=== PATIENT | male | born 1960 | race Caucasian/White ===

== ENCOUNTER 2022-11-21 15:59 | Emergency (ER) | payer MEDICARE, OTHER, SELFPAY ==
[2022-11-21] VITALS (7 sets, daily range): BP systolic 129–173; BP diastolic 69–98; PULSE 65–102; RESP 18–20; TEMP 36.6–36.9; O2SAT 96–98; BMI 24.4
--- NOTE | 2022-11-21 16:04 | ECG_ITS ---
[facility] Test Date: 2022-11-21 Pat Name: cari pastor Department: Room: - Gender: Male [employer] V[employer]: : [id number] Requested By: SADA SHARPE Order Number: [id number] Reading MD: EMELYN DUBOSE Measurements Intervals [place] Rate: 80 P: 156 VA: 164 QRS: 54 QRSD: 120 T: 131 QT: 388 QTc: 424 Interpretive Statements Baseline artifact, regular, narrow complex rhythm 2420 RSR (QR) in lead V1/V2, consistent with right ventricular conduction delay 9150 abnormal ECG No previous ECG available for comparison Electronically Signed On 11-23-2022 19:39:33 EDT by EMELYN DUBOSE
--- NOTE | 2022-11-21 16:20 | PC.NURSE ---
fatmata, guardian [phone], called and left message that patient was transported here. Report from Estelita, nurse at [facility], states patient has been violent with staff and has been threatening physical violence. nurse states that geodon was not available to give and that patient refused all medications today. Patient also stripped in the dining childs yesterday and masturbated and believes he owns all the [facility].
[2022-11-21 16:25] LABS: Basophils Percent Auto 0.5 % (0.2-2.0); Eosinophils Absolute Auto 0.3 10^3/uL (0.0-0.7); Eosinophils Percent Auto 4.6 % (0.9-7.0); Hematocrit 42.5 % (42.0-54.0); Hemoglobin 14.6 g/dL (14.0-18.0); Immature Granulocytes Abs Auto 0.01 10^3/uL (0.00-0.03); Immature Granulocytes Pct Auto 0.2 % (0.0-0.5); Lymphocytes Absolute Auto 1.3 10^3/uL (1.2-3.8); Lymphocytes Percent Auto 22.6 % (20.5-60.0); Mean Corpuscular HGB Conc 34.4 g/dL (29.9-35.2); Mean Corpuscular Hemoglobin 31.9 pg (25.9-34.0); Mean Corpuscular Volume 92.8 fL (80.0-94.0); Mean Platelet Volume 9.6 fL (9.5-13.5); Monocytes Absolute Auto 0.4 10^3/uL (0.3-0.8); Monocytes Percent Auto 7.1 % (1.7-12.0); Neutrophils Absolute Auto 3.8 10^3/uL (1.4-6.5); Platelet Count 220 10^3/uL (150-450); Red Blood Count 4.58 10^6/uL (4.70-6.10); Red Cell Distribution Width 12.1 % (11.0-15.0); White Blood Count 5.9 10^3/uL (4.0-11.0)
[2022-11-21 16:33] LABS: Salicylate <2.8 mg/dL (<=19.9)
[2022-11-21 16:41] LABS: Ammonia 21 umol/L (11-32)
[2022-11-21 16:45] LABS: Alanine Aminotransferase 29 U/L (16-63); Albumin Globulin Ratio 1.1; Albumin Level 3.9 g/dL (3.4-5.0); Alkaline Phosphatase 86 U/L (46-116); Anion Gap 10.7; Aspartate Amino Transferase 14 U/L (15-37); BUN Creatinine Ratio 15.4; Bilirubin Total 0.3 mg/dL (0.2-1.0); Calcium 9.6 mg/dL (8.5-10.1); Carbon Dioxide 26.2 mmol/L (21.0-32.0); Chloride 105 mmol/L (98-107); Estimated GFR (African America >60 (>=60); Estimated GFR (Non-African Ame 53 (>=60); Ethanol <3 mg/dL; Globulin 3.7 g/dL; Glucose 92 mg/dL (74-106); Potassium 3.9 mmol/L (3.5-5.1); Sodium 138 mmol/L (136-145); Thyroid Stimulating Hormone 1.536 uIU/mL (0.358-3.740); Total Protein 7.6 g/dL (6.4-8.2)
[2022-11-21 16:53] LABS: Glucometer 92 mg/dL (74-106)
[2022-11-21 16:58] LABS: Bilirubin Urine NEGATIVE (NEGATIVE); Blood Urine NEGATIVE (NEGATIVE); Clarity Urine CLEAR (CLEAR); Color Urine LT. YELLOW (YELLOW); Glucose Urine UA NEGATIVE (NEGATIVE); Ketones Urine NEGATIVE (NEGATIVE); Leukocyte Esterase Urine NEGATIVE (NEGATIVE); Nitrite Urine NEGATIVE (NEGATIVE); Protein Urine NEGATIVE (NEG/TRACE); Urobilinogen Urine 0.2 EU/dL (0.2-1.0)
[2022-11-21 17:00] LABS: Acetaminophen <2.0 ug/mL (10.0-30.0)
[2022-11-21 17:07] LABS: Amphetamine Screen Urine NEGATIVE (NEGATIVE); Benzodiazepines Screen Urine NEGATIVE (NEGATIVE); Cannabinoid Screen Urine NEGATIVE (NEGATIVE); Cocaine Screen Urine NEGATIVE (NEGATIVE); Methamphetamines Screen Urine NEGATIVE (NEGATIVE); Opiate Screen Urine NEGATIVE (NEGATIVE); Phencyclidine Screen Urine NEGATIVE (NEGATIVE)
[2022-11-21 17:08] LABS: Barbiturates Screen Urine NEGATIVE (NEGATIVE); Buprenorphine Screen Urine NEGATIVE (NEGATIVE); Methadone Screen Urine NEGATIVE (NEGATIVE); Oxycodone Screen Urine NEGATIVE (NEGATIVE); Tricyclic Antidepressant Urine POSITIVE (NEGATIVE)
--- NOTE | 2022-11-21 18:18 | ED_ITS ---
Documented by User: Flavia Vera 12/04/22 13:09 HPI - Altered Mental Status General Chief Complaint: Altered Mental Status Stated Complaint: combative/off meds Time Seen by Provider: 11/21/22 16:04 Source: caregiver Mode of arrival: ambulance Limitations: no limitations History of Present Illness HPI narrative: 62-year-old male sent here to the emergency room by apoorva from [facility]. Patient is recently been admitted to [facility] from [facility]. He has a history of schizophrenic disorder and bipolar disorder. He became aggressive with staff and was yelling at [facility] today when they were trying to get blood work from him. said they could not keep him at that facility and sent him here to the hospital. patient is at his baseline at this point. Patient is not aggressive here thus far. Related Data Home Medications Medication Instructions Recorded Confirmed amlodipine 5 mg tablet 5 mg PO DAILY 11/22/22 11/22/22 aspirin 81 mg capsule 81 mg PO DAILY 11/22/22 11/22/22 carbidopa 25 mg-levodopa 100 mg 1 tab PO BID 11/22/22 11/22/22 tablet carbidopa 25 mg-levodopa 100 mg 1.5 tab PO QID 11/22/22 11/22/22 tablet cholecalciferol (vitamin D3) 25 1,000 unit PO DAILY 11/22/22 11/22/22 mcg (1,000 unit) capsule cimetidine 300 mg tablet 300 mg PO Q12H 11/22/22 11/22/22 pimavanserin 34 mg capsule 34 mg PO DAILY 11/22/22 11/22/22 quetiapine 100 mg tablet 100 mg PO DAILY 11/22/22 11/22/22 quetiapine 400 mg tablet 400 mg PO BEDTIME 11/22/22 11/22/22 trazodone 100 mg tablet 100 mg PO BEDTIME 11/22/22 11/22/22 ziprasidone mesylate (Geodon) 20 mg IM .q12 PRN restlessness 11/22/22 11/22/22 Allergies Allergy/AdvReac Type Severity Reaction Status Date / Time No Known Drug Allergies Allergy Verified 11/21/22 16:00 Review of Systems ROS Narrative All Systems are negative except as noted/marked.All systems reviewed and otherwise negative [facility] Medical History (Updated 11/22/22 @ 04:56 by David Santiago) Exam Narrative Exam Narrative: General: The patient appears well and in no apparent distress. Patient is resting comfortably on cart. Skin: Warm, dry, no pallor noted. There is no rash noted. Head: Normocephalic, atraumatic Eye: Normal conjunctiva, no drainage, EOMI. PERRL Ears, Nose, Mouth, and Throat: oral mucosa is moist. Nares patent. Mouth without vesicles. Ear canals patent. Tm's without Erythema Cardiovascular: Regular Rate and Rhythm Respiratory: Patient is in no distress, no accessory muscle use, lungs are clear to auscultation, no wheezing, rales or rhonchi Back: non-tender, no CVA tenderness bilaterally to percussion. GI: Normal bowel sounds, no tenderness to palpation, no masses appreciated. No rebound, guarding, or rigidity noted. Musculoskeletal: Bilateral upper extremity Parkinson's tremor, chronic contracture of the hands bilaterally ,The patient has no evidence of calf tenderness, no pitting edema, symmetrical pulses noted bilaterally Neurological: Bilateral upper extremity tremors, chronic, normal speech, alert to self Psychiatric: Cooperative schizophrenic Constitutional Vital Signs - 24 hr 11/21/22 16:01 11/21/22 22:57 11/21/22 17:46 Temperature 98 F 98.4 F Pulse Rate 65 79 Pulse Rate [Monitor] 78 Respiratory Rate 20 20 18 Blood Pressure 129/69 H 140/98 H Blood Pressure [Right Arm] 173/94 H Pulse Oximetry 98 97 98 Oxygen Delivery Method Room Air Course Vital Signs Vital signs: Vital Signs Temperature 98 F 11/21/22 16:01 Pulse Rate 78 11/21/22 16:01 Respiratory Rate 20 11/21/22 16:01 Blood Pressure 173/94 H 11/21/22 16:01 Pulse Oximetry 98 11/21/22 16:01 Oxygen Delivery Method Room Air 11/21/22 16:01 Temperature 98.4 F 11/21/22 22:57 Pulse Rate 65 11/21/22 22:57 Respiratory Rate 20 11/21/22 22:57 Blood Pressure 141/85 H 11/22/22 10:53 Pulse Oximetry 97 11/21/22 22:57 Oxygen Delivery Method Room Air 11/21/22 16:01 MDM - Altered Mental Status MDM Narrative Medical decision making narrative: She has a known history of schizophrenia and bipolar. He has been's staying at a assisted since November 11. Over last 24-48 hours he had become aggressive with staff and then loomed ax stripped in the kitchen. Patient was sent here for evaluation and further placement at the assisted could not care for him. Patient has been calm and cooperative here in emergency room. Vital signs have been stable. He is eating and drinking well. Labwork was within normal limits patient is medically cleared. He has talked to [facility] and we're awaiting placement at this time. Medical Records Attestation: I reviewed the patient's medical records. Lab Data Attestation: I reviewed the patient's lab results. Labs: Lab Results 11/21/22 11/21/22 11/21/22 Range/Units 16:15 16:30 16:50 WBC 5.9 (4.0-11.0) 10^3/uL RBC 4.58 L (4.70-6.10) 10^6/uL Hgb 14.6 (14.0-18.0) g/dL Hct 42.5 (42.0-54.0) % MCV 92.8 (80.0-94.0) fL MCH 31.9 (25.9-34.0) pg MCHC 34.4 (29.9-35.2) g/dL RDW 12.1 (11.0-15.0) % Plt Count 220 (150-450) 10^3/uL MPV 9.6 (9.5-13.5) fL Neut % (Auto) 65.0 (43.0-75.0) % Lymph % (Auto) 22.6 (20.5-60.0) % [place] % (Auto) 7.1 (1.7-12.0) % Eos % (Auto) 4.6 (0.9-7.0) % Baso % (Auto) 0.5 (0.2-2.0) % Neut # (Auto) 3.8 (1.4-6.5) 10^3/uL Lymph # (Auto) 1.3 (1.2-3.8) 10^3/uL [place] # (Auto) 0.4 (0.3-0.8) 10^3/uL Eos # (Auto) 0.3 (0.0-0.7) 10^3/uL Baso # (Auto) 0.0 (0.0-0.1) 10^3/uL Abs Immat Gran (auto) 0.01 (0.00-0.03) 10^3/uL Imm/Tot Granulo (auto) 0.2 (0.0-0.5) % Sodium 138 (136-145) mmol/L Potassium 3.9 (3.5-5.1) mmol/L Chloride 105 (98-107) mmol/L Carbon Dioxide 26.2 (21.0-32.0) mmol/L Anion Gap 10.7 BUN 21.0 H (7.0-18.0) mg/dL Creatinine 1.36 H (0.70-1.30) mg/dL Est GFR ( Amer) >60 (>=60) Est GFR (Non-Af Amer) 53 L (>=60) BUN/Creatinine Ratio 15.4 Glucose 92 (74-106) mg/dL Calcium 9.6 (8.5-10.1) mg/dL Total Bilirubin 0.3 (0.2-1.0) mg/dL AST 14 L (15-37) U/L ALT 29 (16-63) U/L Alkaline Phosphatase 86 (46-116) U/L Ammonia 21 (11-32) umol/L Total Protein 7.6 (6.4-8.2) g/dL Albumin 3.9 (3.4-5.0) g/dL Globulin 3.7 g/dL Albumin/Globulin Ratio 1.1 TSH 1.536 (0.358-3.740) uIU/mL Urine Color Lt. yellow (YELLOW) Urine Clarity Clear (CLEAR) Urine pH 6.0 (5.0-9.0) Ur Specific [place] 1.010 (1.005-1.025) Urine Protein Negative (NEG/TRACE) mg/dL Urine Glucose (UA) Negative (NEGATIVE) mg/dL Urine Ketones Negative (NEGATIVE) mg/dL Urine Occult Blood Negative (NEGATIVE) Urine Nitrite Negative (NEGATIVE) Urine Bilirubin Negative (NEGATIVE) Urine Urobilinogen 0.2 (0.2-1.0) EU/dL Ur Leukocyte Esterase Negative (NEGATIVE) Salicylates <2.8 (<=19.9) mg/dL Urine Opiates Screen Negative (NEGATIVE) Ur Buprenorphine Scrn Negative (NEGATIVE) Ur Oxycodone Screen Negative (NEGATIVE) Urine Methadone Screen Negative (NEGATIVE) Ur Propoxyphene Screen Negative (NEGATIVE) Acetaminophen <2.0 L (10.0-30.0) ug/mL Ur Barbiturates Screen Negative (NEGATIVE) U Tricyclic Antidepress Positive A (NEGATIVE) Ur Phencyclidine Scrn Negative (NEGATIVE) Ur Amphetamines Screen Negative (NEGATIVE) U Methamphetamines Scrn Negative (NEGATIVE) U Benzodiazepines Scrn Negative (NEGATIVE) Urine Cocaine Screen Negative (NEGATIVE) U Cannabinoids Screen Negative (NEGATIVE) Ethanol Quant <3 mg/dL Adenovirus (PCR) (NOT DETECTE) C. pneumoniae DNA (PCR) (NOT DETECTE) Coronavirus Type OC43 (NOT DETECTE) Coronavirus Type HKU1 (NOT DETECTE) Coronavirus Type 229E (NOT DETECTE) Coronavirus Type NL63 (NOT DETECTE) Human Metapneumovir PCR (NOT DETECTE) M. pneumoniae (PCR) (NOT DETECTE) Parainfluenza PCR (NOT DETECTE) Parainfluenza 2 (PCR) (NOT DETECTE) Parainfluenza 3 (PCR) (NOT DETECTE) Parainfluenza 4 (PCR) (NOT DETECTE) RSV (RT-PCR) (NOT DETECTE) Entero/Rhino (PCR) (NOT DETECTE) SARS-CoV-2 (PCR) (NOT DETECTE) Bordetella pertussis (PCR) (NOT DETECTE) B parapertussis DNA PCR (NOT DETECTE) Influenza Type A (PCR) (NOT DETECTE) Influenza Type B (PCR) (NOT DETECTE) POC Glucose 92 (74-106) mg/dL 11/21/22 Range/Units 21:50 WBC (4.0-11.0) 10^3/uL RBC (4.70-6.10) 10^6/uL Hgb (14.0-18.0) g/dL Hct (42.0-54.0) % MCV (80.0-94.0) fL MCH (25.9-34.0) pg MCHC (29.9-35.2) g/dL RDW (11.0-15.0) % Plt Count (150-450) 10^3/uL MPV (9.5-13.5) fL Neut % (Auto) (43.0-75.0) % Lymph % (Auto) (20.5-60.0) % [place] % (Auto) (1.7-12.0) % Eos % (Auto) (0.9-7.0) % Baso % (Auto) (0.2-2.0) % Neut # (Auto) (1.4-6.5) 10^3/uL Lymph # (Auto) (1.2-3.8) 10^3/uL [place] # (Auto) (0.3-0.8) 10^3/uL Eos # (Auto) (0.0-0.7) 10^3/uL Baso # (Auto) (0.0-0.1) 10^3/uL Abs Immat Gran (auto) (0.00-0.03) 10^3/uL Imm/Tot Granulo (auto) (0.0-0.5) % Sodium (136-145) mmol/L Potassium (3.5-5.1) mmol/L Chloride (98-107) mmol/L Carbon Dioxide (21.0-32.0) mmol/L Anion Gap BUN (7.0-18.0) mg/dL Creatinine (0.70-1.30) mg/dL Est GFR ( Amer) (>=60) Est GFR (Non-Af Amer) (>=60) BUN/Creatinine Ratio Glucose (74-106) mg/dL Calcium (8.5-10.1) mg/dL Total Bilirubin (0.2-1.0) mg/dL AST (15-37) U/L ALT (16-63) U/L Alkaline Phosphatase (46-116) U/L Ammonia (11-32) umol/L Total Protein (6.4-8.2) g/dL Albumin (3.4-5.0) g/dL Globulin g/dL Albumin/Globulin Ratio TSH (0.358-3.740) uIU/mL Urine Color (YELLOW) Urine Clarity (CLEAR) Urine pH (5.0-9.0) Ur Specific [place] (1.005-1.025) Urine Protein (NEG/TRACE) mg/dL Urine Glucose (UA) (NEGATIVE) mg/dL Urine Ketones (NEGATIVE) mg/dL Urine Occult Blood (NEGATIVE) Urine Nitrite (NEGATIVE) Urine Bilirubin (NEGATIVE) Urine Urobilinogen (0.2-1.0) EU/dL Ur Leukocyte Esterase (NEGATIVE) Salicylates (<=19.9) mg/dL Urine Opiates Screen (NEGATIVE) Ur Buprenorphine Scrn (NEGATIVE) Ur Oxycodone Screen (NEGATIVE) Urine Methadone Screen (NEGATIVE) Ur Propoxyphene Screen (NEGATIVE) Acetaminophen (10.0-30.0) ug/mL Ur Barbiturates Screen (NEGATIVE) U Tricyclic Antidepress (NEGATIVE) Ur Phencyclidine Scrn (NEGATIVE) Ur Amphetamines Screen (NEGATIVE) U Methamphetamines Scrn (NEGATIVE) U Benzodiazepines Scrn (NEGATIVE) Urine Cocaine Screen (NEGATIVE) U Cannabinoids Screen (NEGATIVE) Ethanol Quant mg/dL Adenovirus (PCR) Not detected (NOT DETECTE) C. pneumoniae DNA (PCR) Not detected (NOT DETECTE) Coronavirus Type OC43 Not detected (NOT DETECTE) Coronavirus Type HKU1 Not detected (NOT DETECTE) Coronavirus Type 229E Not detected (NOT DETECTE) Coronavirus Type NL63 Not detected (NOT DETECTE) Human Metapneumovir PCR Not detected (NOT DETECTE) M. pneumoniae (PCR) Not detected (NOT DETECTE) Parainfluenza PCR Not detected (NOT DETECTE) Parainfluenza 2 (PCR) Not detected (NOT DETECTE) Parainfluenza 3 (PCR) Not detected (NOT DETECTE) Parainfluenza 4 (PCR) Not detected (NOT DETECTE) RSV (RT-PCR) Not detected (NOT DETECTE) Entero/Rhino (PCR) Not detected (NOT DETECTE) SARS-CoV-2 (PCR) Not detected (NOT DETECTE) Bordetella pertussis (PCR) Not detected (NOT DETECTE) B parapertussis DNA PCR Not detected (NOT DETECTE) Influenza Type A (PCR) Not detected (NOT DETECTE) Influenza Type B (PCR) Not detected (NOT DETECTE) POC Glucose (74-106) mg/dL Discharge Plan Discharge Chief Complaint: Altered Mental Status Clinical Impression: Schizo affective schizophrenia Patient Disposition: Xfer Psychiatric Hosp Time of Disposition Decision: 02:45 Condition: Good Mode of Transportation: Mental Health Car Discharge Date/Time: 11/22/22 12:45 Documented by User: Belem Suarez MD 11/22/22 04:52 HPI - Altered Mental Status General Chief Complaint: Altered Mental Status Stated Complaint: combative/off meds Time Seen by Provider: 11/21/22 16:04 Related Data Home Medications Medication Instructions Recorded Confirmed amlodipine 5 mg tablet 5 mg PO DAILY 11/22/22 11/22/22 aspirin 81 mg capsule 81 mg PO DAILY 11/22/22 11/22/22 carbidopa 25 mg-levodopa 100 mg 1 tab PO BID 11/22/22 11/22/22 tablet carbidopa 25 mg-levodopa 100 mg 1.5 tab PO QID 11/22/22 11/22/22 tablet cholecalciferol (vitamin D3) 25 1,000 unit PO DAILY 11/22/22 11/22/22 mcg (1,000 unit) capsule cimetidine 300 mg tablet 300 mg PO Q12H 11/22/22 11/22/22 pimavanserin 34 mg capsule 34 mg PO DAILY 11/22/22 11/22/22 quetiapine 100 mg tablet 100 mg PO DAILY 11/22/22 11/22/22 quetiapine 400 mg tablet 400 mg PO BEDTIME 11/22/22 11/22/22 trazodone 100 mg tablet 100 mg PO BEDTIME 11/22/22 11/22/22 ziprasidone mesylate (Geodon) 20 mg IM .q12 PRN restlessness 11/22/22 11/22/22 Allergies Allergy/AdvReac Type Severity Reaction Status Date / Time No Known Drug Allergies Allergy Verified 11/21/22 16:00 [facility] Medical History (Updated 11/22/22 @ 04:56 by David Santiago) Exam Constitutional Vital Signs - 24 hr 11/21/22 16:01 11/21/22 22:57 11/21/22 17:46 Temperature 98 F 98.4 F Pulse Rate 65 79 Pulse Rate [Monitor] 78 Respiratory Rate 20 20 18 Blood Pressure 129/69 H 140/98 H Blood Pressure [Right Arm] 173/94 H Pulse Oximetry 98 97 98 Oxygen Delivery Method Room Air Course Vital Signs Vital signs: Vital Signs Temperature 98 F 11/21/22 16:01 Pulse Rate 78 11/21/22 16:01 Respiratory Rate 20 11/21/22 16:01 Blood Pressure 173/94 H 11/21/22 16:01 Pulse Oximetry 98 11/21/22 16:01 Oxygen Delivery Method Room Air 11/21/22 16:01 Temperature 98.4 F 11/21/22 22:57 Pulse Rate 65 11/21/22 22:57 Respiratory Rate 20 11/21/22 22:57 Blood Pressure 141/85 H 11/22/22 10:53 Pulse Oximetry 97 11/21/22 22:57 Oxygen Delivery Method Room Air 11/21/22 16:01 MDM - Altered Mental Status MDM Narrative Medical decision making narrative: He has a known history of schizophrenia and bipolar. He has been's staying at a assisted since November 11. Over last 24-48 hours he had become aggressive with staff and stripped in the kitchen. Patient was sent here for evaluation and further placement at the assisted could not care for him. Patient has been calm and cooperative here in emergency room. Vital signs have been stable. He is eating and drinking well. Labwork was within normal limits patient is medically cleared. He has talked to [facility] and we're awaiting placement at this time. She was seen and evaluated with the physician reference assistant. Please for her H and P. This patient has a history of schizophrenia and bipolar disorder and has had a behavioral change recently. He was medically cleared in the emergency department and evaluated by [facility] with recommendation for psychiatric stabilization. He has been accepted for transfer to [facility] in [place] and will be transferred later today. He remains bizarre but calm and cooperative while in the ED Lab Data Labs: Lab Results 11/21/22 11/21/22 11/21/22 Range/Units 16:15 16:30 16:50 WBC 5.9 (4.0-11.0) 10^3/uL RBC 4.58 L (4.70-6.10) 10^6/uL Hgb 14.6 (14.0-18.0) g/dL Hct 42.5 (42.0-54.0) % MCV 92.8 (80.0-94.0) fL MCH 31.9 (25.9-34.0) pg MCHC 34.4 (29.9-35.2) g/dL RDW 12.1 (11.0-15.0) % Plt Count 220 (150-450) 10^3/uL MPV 9.6 (9.5-13.5) fL Neut % (Auto) 65.0 (43.0-75.0) % Lymph % (Auto) 22.6 (20.5-60.0) % [place] % (Auto) 7.1 (1.7-12.0) % Eos % (Auto) 4.6 (0.9-7.0) % Baso % (Auto) 0.5 (0.2-2.0) % Neut # (Auto) 3.8 (1.4-6.5) 10^3/uL Lymph # (Auto) 1.3 (1.2-3.8) 10^3/uL [place] # (Auto) 0.4 (0.3-0.8) 10^3/uL Eos # (Auto) 0.3 (0.0-0.7) 10^3/uL Baso # (Auto) 0.0 (0.0-0.1) 10^3/uL Abs Immat Gran (auto) 0.01 (0.00-0.03) 10^3/uL Imm/Tot Granulo (auto) 0.2 (0.0-0.5) % Sodium 138 (136-145) mmol/L Potassium 3.9 (3.5-5.1) mmol/L Chloride 105 (98-107) mmol/L Carbon Dioxide 26.2 (21.0-32.0) mmol/L Anion Gap 10.7 BUN 21.0 H (7.0-18.0) mg/dL Creatinine 1.36 H (0.70-1.30) mg/dL Est GFR ( Amer) >60 (>=60) Est GFR (Non-Af Amer) 53 L (>=60) BUN/Creatinine Ratio 15.4 Glucose 92 (74-106) mg/dL Calcium 9.6 (8.5-10.1) mg/dL Total Bilirubin 0.3 (0.2-1.0) mg/dL AST 14 L (15-37) U/L ALT 29 (16-63) U/L Alkaline Phosphatase 86 (46-116) U/L Ammonia 21 (11-32) umol/L Total Protein 7.6 (6.4-8.2) g/dL Albumin 3.9 (3.4-5.0) g/dL Globulin 3.7 g/dL Albumin/Globulin Ratio 1.1 TSH 1.536 (0.358-3.740) uIU/mL Urine Color Lt. yellow (YELLOW) Urine Clarity Clear (CLEAR) Urine pH 6.0 (5.0-9.0) Ur Specific [place] 1.010 (1.005-1.025) Urine Protein Negative (NEG/TRACE) mg/dL Urine Glucose (UA) Negative (NEGATIVE) mg/dL Urine Ketones Negative (NEGATIVE) mg/dL Urine Occult Blood Negative (NEGATIVE) Urine Nitrite Negative (NEGATIVE) Urine Bilirubin Negative (NEGATIVE) Urine Urobilinogen 0.2 (0.2-1.0) EU/dL Ur Leukocyte Esterase Negative (NEGATIVE) Salicylates <2.8 (<=19.9) mg/dL Urine Opiates Screen Negative (NEGATIVE) Ur Buprenorphine Scrn Negative (NEGATIVE) Ur Oxycodone Screen Negative (NEGATIVE) Urine Methadone Screen Negative (NEGATIVE) Ur Propoxyphene Screen Negative (NEGATIVE) Acetaminophen <2.0 L (10.0-30.0) ug/mL Ur Barbiturates Screen Negative (NEGATIVE) U Tricyclic Antidepress Positive A (NEGATIVE) Ur Phencyclidine Scrn Negative (NEGATIVE) Ur Amphetamines Screen Negative (NEGATIVE) U Methamphetamines Scrn Negative (NEGATIVE) U Benzodiazepines Scrn Negative (NEGATIVE) Urine Cocaine Screen Negative (NEGATIVE) U Cannabinoids Screen Negative (NEGATIVE) Ethanol Quant <3 mg/dL Adenovirus (PCR) (NOT DETECTE) C. pneumoniae DNA (PCR) (NOT DETECTE) Coronavirus Type OC43 (NOT DETECTE) Coronavirus Type HKU1 (NOT DETECTE) Coronavirus Type 229E (NOT DETECTE) Coronavirus Type NL63 (NOT DETECTE) Human Metapneumovir PCR (NOT DETECTE) M. pneumoniae (PCR) (NOT DETECTE) Parainfluenza PCR (NOT DETECTE) Parainfluenza 2 (PCR) (NOT DETECTE) Parainfluenza 3 (PCR) (NOT DETECTE) Parainfluenza 4 (PCR) (NOT DETECTE) RSV (RT-PCR) (NOT DETECTE) Entero/Rhino (PCR) (NOT DETECTE) SARS-CoV-2 (PCR) (NOT DETECTE) Bordetella pertussis (PCR) (NOT DETECTE) B parapertussis DNA PCR (NOT DETECTE) Influenza Type A (PCR) (NOT DETECTE) Influenza Type B (PCR) (NOT DETECTE) POC Glucose 92 (74-106) mg/dL 11/21/22 Range/Units 21:50 WBC (4.0-11.0) 10^3/uL RBC (4.70-6.10) 10^6/uL Hgb (14.0-18.0) g/dL Hct (42.0-54.0) % MCV (80.0-94.0) fL MCH (25.9-34.0) pg MCHC (29.9-35.2) g/dL RDW (11.0-15.0) % Plt Count (150-450) 10^3/uL MPV (9.5-13.5) fL Neut % (Auto) (43.0-75.0) % Lymph % (Auto) (20.5-60.0) % [place] % (Auto) (1.7-12.0) % Eos % (Auto) (0.9-7.0) % Baso % (Auto) (0.2-2.0) % Neut # (Auto) (1.4-6.5) 10^3/uL Lymph # (Auto) (1.2-3.8) 10^3/uL [place] # (Auto) (0.3-0.8) 10^3/uL Eos # (Auto) (0.0-0.7) 10^3/uL Baso # (Auto) (0.0-0.1) 10^3/uL Abs Immat Gran (auto) (0.00-0.03) 10^3/uL Imm/Tot Granulo (auto) (0.0-0.5) % Sodium (136-145) mmol/L Potassium (3.5-5.1) mmol/L Chloride (98-107) mmol/L Carbon Dioxide (21.0-32.0) mmol/L Anion Gap BUN (7.0-18.0) mg/dL Creatinine (0.70-1.30) mg/dL Est GFR ( Amer) (>=60) Est GFR (Non-Af Amer) (>=60) BUN/Creatinine Ratio Glucose (74-106) mg/dL Calcium (8.5-10.1) mg/dL Total Bilirubin (0.2-1.0) mg/dL AST (15-37) U/L ALT (16-63) U/L Alkaline Phosphatase (46-116) U/L Ammonia (11-32) umol/L Total Protein (6.4-8.2) g/dL Albumin (3.4-5.0) g/dL Globulin g/dL Albumin/Globulin Ratio TSH (0.358-3.740) uIU/mL Urine Color (YELLOW) Urine Clarity (CLEAR) Urine pH (5.0-9.0) Ur Specific [place] (1.005-1.025) Urine Protein (NEG/TRACE) mg/dL Urine Glucose (UA) (NEGATIVE) mg/dL Urine Ketones (NEGATIVE) mg/dL Urine Occult Blood (NEGATIVE) Urine Nitrite (NEGATIVE) Urine Bilirubin (NEGATIVE) Urine Urobilinogen (0.2-1.0) EU/dL Ur Leukocyte Esterase (NEGATIVE) Salicylates (<=19.9) mg/dL Urine Opiates Screen (NEGATIVE) Ur Buprenorphine Scrn (NEGATIVE) Ur Oxycodone Screen (NEGATIVE) Urine Methadone Screen (NEGATIVE) Ur Propoxyphene Screen (NEGATIVE) Acetaminophen (10.0-30.0) ug/mL Ur Barbiturates Screen (NEGATIVE) U Tricyclic Antidepress (NEGATIVE) Ur Phencyclidine Scrn (NEGATIVE) Ur Amphetamines Screen (NEGATIVE) U Methamphetamines Scrn (NEGATIVE) U Benzodiazepines Scrn (NEGATIVE) Urine Cocaine Screen (NEGATIVE) U Cannabinoids Screen (NEGATIVE) Ethanol Quant mg/dL Adenovirus (PCR) Not detected (NOT DETECTE) C. pneumoniae DNA (PCR) Not detected (NOT DETECTE) Coronavirus Type OC43 Not detected (NOT DETECTE) Coronavirus Type HKU1 Not detected (NOT DETECTE) Coronavirus Type 229E Not detected (NOT DETECTE) Coronavirus Type NL63 Not detected (NOT DETECTE) Human Metapneumovir PCR Not detected (NOT DETECTE) M. pneumoniae (PCR) Not detected (NOT DETECTE) Parainfluenza PCR Not detected (NOT DETECTE) Parainfluenza 2 (PCR) Not detected (NOT DETECTE) Parainfluenza 3 (PCR) Not detected (NOT DETECTE) Parainfluenza 4 (PCR) Not detected (NOT DETECTE) RSV (RT-PCR) Not detected (NOT DETECTE) Entero/Rhino (PCR) Not detected (NOT DETECTE) SARS-CoV-2 (PCR) Not detected (NOT DETECTE) Bordetella pertussis (PCR) Not detected (NOT DETECTE) B parapertussis DNA PCR Not detected (NOT DETECTE) Influenza Type A (PCR) Not detected (NOT DETECTE) Influenza Type B (PCR) Not detected (NOT DETECTE) POC Glucose (74-106) mg/dL Discharge Plan Discharge Chief Complaint: Altered Mental Status Clinical Impression: Schizo affective schizophrenia Patient Disposition: [facility] Time of Disposition Decision: 02:45 Condition: Good Mode of Transportation: Mental Health Car Discharge Date/Time: 11/22/22 12:45
[2022-11-21 22:55] LABS: Adenovirus NOT DETECTED (NOT DETECTE); Bordetella parapertussis NOT DETECTED (NOT DETECTE); Coronavirus 229E NOT DETECTED (NOT DETECTE); Coronavirus HKU1 NOT DETECTED (NOT DETECTE); Coronavirus NL63 NOT DETECTED (NOT DETECTE); Coronavirus OC43 NOT DETECTED (NOT DETECTE); Human Metapneumovirus NOT DETECTED (NOT DETECTE); Human Rhinovirus/Enterovirus NOT DETECTED (NOT DETECTE); Influenza A NOT DETECTED (NOT DETECTE); Influenza B NOT DETECTED (NOT DETECTE); Mycoplasma pneumoniae NOT DETECTED (NOT DETECTE); Parainfluenza Virus 1 NOT DETECTED (NOT DETECTE); Parainfluenza Virus 2 NOT DETECTED (NOT DETECTE); Parainfluenza Virus 3 NOT DETECTED (NOT DETECTE); Parainfluenza Virus 4 NOT DETECTED (NOT DETECTE); Respiratory Syncytial Virus NOT DETECTED (NOT DETECTE); SARS-CoV-2 NOT DETECTED (NOT DETECTE)
--- NOTE | 2022-11-22 00:28 | PC.NURSE ---
Pt walked out of room to nurses station Pt stated he needed help with his bed Pt had wet the bed This nurse began stripping the sheets, as soon as the sheets were off pt climbed back in the bed, pt refused to let this nurse put new sheets under neath him Pt was given a warm blanket and a pillow Pt states stop mocking my family repeatedly This nurse, who has not been caring for pt is not aware of his normal mental status This incident was reported to his nurse
--- NOTE | 2022-11-22 02:53 | PC.NURSE ---
patient had peed the bed and gown. while cleaning patient up he became aggressive and stated we were woman trying to man handle him. was able to change soiled bedding and remove gown. patient then refused to put on a brief or gown. Patient was covered with a warm blanket and dr. gaspar went in to speak with him. patient refused to have his vitals checked.
[2022-11-22] MEDS: QUETIAPINE FUMARATE 100 MG TABLET 400 MG PO (03:50)
[2022-11-22] MEDS: IBUPROFEN 600 MG TABLET PO (03:51)
--- NOTE | 2022-11-22 04:25 | PC.NURSE ---
patient took medication in applesauce. Patient used urinal. gave 2 chocolate milks. patient refused to allow his brief buttoned. patient laid back down.
[2022-11-22] MEDS: ZIPRASIDONE MESYLATE 20 MG/ML VIAL IM (06:11)
--- NOTE | 2022-11-22 06:22 | PC.NURSE ---
Patient came out to nurses stand naked. With help from justin and security we were able to get patient calmly back to room. patient refused gown and vitals. was able to get patient to agree to lying down. Patient then began crying about his girlfriend, friends, and sewing teacher coming. Tried to talk patient through slow deep breaths. explaining that he hasn't slept in a long time and need to try and rest. Patient closed eyes and took a deep breath. Again attempted to get vitals on patient. patient began to yell. I stopped and allowed patient to settle. geodon was given to help patient sleep.
[2022-11-22 10:53] VITALS: BP 141/85
== END 2022-11-22 12:45 ==
PROVIDERS: Emergency Medicine; Physician Assistant; Emergency Provider Emergency Medicine; PCP Family Medicine
DX: F25.9 Schizoaffective disorder, unspecified (principal); F31.9 Bipolar disorder, unspecified; Z20.822 Contact with and (suspected) exposure to COVID-19
CPT/HCPCS: 0202U; 36415; 80053; 80179; 80307; 80320; 80329; 81003; 82140; 84443; 85025; 87635; 93005; 96372; 99284